=== PATIENT | female | born 1965 | race Caucasian/White ===

== ENCOUNTER → 2021-01-28 10:29 | Outpatient (CLI) | payer MEDICARE, OTHER, SELFPAY ==
--- NOTE | ~2021-01-28 | XR_ITS ---
EXAMINATION: XR hip LT min 2V INDICATION: Low back pain TECHNIQUE: Two views of the left hip are obtained. COMPARISON: 10/28/2010 FINDINGS: Bone alignment is normal. There is no fracture. Mild osteoarthritis is noted. There are phl eboliths of the pelvis. The soft tissues are unremarkable. IMPRESSION: 1. Mild osteoarthritis. Reviewed, dictated and finalized at location A. [employer]IC PLUMBER HELPER IMPRESSION: 1. Mild osteoarthritis.
--- NOTE | ~2021-01-28 | MR_ITS ---
EXAMINATION: MR lumbar spine wo [facility] EXAM DATE: 01/28/2021 11:13 INDICATION: Low back pain radiating to left leg. TECHNIQUE: Multi-sequential, multiplanar MR images of the lumbar spine were obtained without contrast . Sagittal T1, T2, T2 fat saturation images. Axial T2 weighted images. Comparison is made to prior examination from 12/23/2015. FINDINGS: There is mild to moderate loss of the L4 vertebral body height, moderate loss of L5 mostly centrally. Some loss of the posterior cortices making these chronic burst fractures, stable without r etropulsion or interval change. Mild to moderate T12 chronic T12 compression fracture also unchanged. L3 hemangioma. 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 The conus medullaris terminates at the L1/2 level and has normal signal intensity and morphology. Paraspinal soft tissue is unremarkable. Level by level evaluation: T12-L1: Disc does not extend beyond the endplate margin. Facet arthropathy: Mild. Neural foraminal stenosis: No stenosis. Central canal stenosis: No stenosis. L1-L2: Disc does not extend beyond the endplate margin. Facet arthropathy: Mild to moderate. Neural foraminal stenosis: No stenosis. Central canal stenosis: No stenosis. L2-L3: Disc does not extend beyond the endplate margin. Facet arthropathy: Moderate. Neural foraminal stenosis: No stenosis. Central canal stenosis: No stenosis. L3-L4: There is a mild to moderate diffuse disc bulge. Facet arthropathy: Moderate . Ligamentum flavum enlargement . Neural foraminal stenosis: Mild right. Central canal stenosis: Mild. L4-L5: There is a mild to moderate diffuse disc bulge. Facet arthropathy: Moderate . Ligamentum flavum enlargement. Neural foraminal stenosis: Mild to moderate left, mild right. Central canal stenosis: Mild to moderate. L5-S1: There is a mild diffuse disc bulge. Facet arthropathy: Moderate left, mild to moderate right. Neural foraminal stenosis: Mild to moderate left, mild right. Central canal stenosis: No stenosis. Difficult to appreciate any significant interval change compared to 2016. IMPRESSION: 1. Chronic compression/burst fractures of T12, L4 and L5 unchanged. 2. Mild to moderate lumbar spondylosis. Reviewed, dictated and finalized at location B. T METAL ERECTOR
== END ==
PROVIDERS: PCP Emergency Medicine; Visit Provider Nurse Practitioner Family
DX: M16.12 Unilateral primary osteoarthritis, left hip (principal); M47.896 Other spondylosis, lumbar region
CPT/HCPCS: 72148; 73502

== ENCOUNTER → 2021-01-28 10:57 | Outpatient (CLI) | payer MEDICARE, OTHER, SELFPAY ==
--- NOTE | ~2021-01-28 | MM_ITS ---
EXAMINATION: MM screening [facility] w [facility] HISTORY: Screening mammogram TECHNIQUE: Craniocaudal and mediolateral oblique 3-D tomosynthesis images were obtained and synthetic 2-D images were generated. CAD analysis was submitted and interpreted. COMPARISON: No prior mammogram is available for comparison at this institution. BREAST PARENCHYMAL COMPOSITION: The breasts are almost entirely fatty. FINDINGS: There is no evidence of suspicious mass, calcification, or architectural distortion to sugg est malignancy in either breast. There has been no suspicious interval change. IMPRESSION: 1. No mammographic evidence of malignancy. 2. Recommend routine screening mammography in one year. BI-RADS Category 1: Negative Reviewed, dictated and finalized at location A. NEERING PROGRAM MANAGER
== END ==
PROVIDERS: Visit Provider Emergency Medicine
DX: Z12.31 Encounter for screening mammogram for malignant neoplasm of breast (principal)
CPT/HCPCS: 77063; 77067